=== PATIENT | male | born 1950 | race Hispanic/Latino ===

== ENCOUNTER 2020-11-15 15:43 | Emergency (ER) | payer BC ==
[~2020-11-15] VITALS: Ht 193 cm; Wt 86.2 kg
== END 2020-11-15 18:07 | disposition other institution (70) ==
LOC: ER 15:58
DX: S10.83XA Contusion of other specified part of neck, initial encounter (principal); W01.198A Fall on same level from slipping, tripping and stumbling with subsequent striking against other object, initial encounter; Y92.008 Other place in unspecified non-institutional (private) residence as the place of occurrence of the external cause; I10 Essential (primary) hypertension; I25.2 Old myocardial infarction
CPT/HCPCS: 99284